=== PATIENT | female | born 1975 | race African-American/Black ===

== ENCOUNTER 2017-12-03 01:58 | Emergency (ER) | payer SELFPAY ==
[~2017-12-03] VITALS: Ht 167.6 cm; Wt 50.0 kg
[2017-12-03] MEDS ORDERED: IBUPROFEN 600MG TABLET PO STA (09:19)
[2017-12-03] MEDS ORDERED: DIPHENHYDRAMINE 25MG CAPSULE PO ONE (09:30)
[2017-12-03 09:54] LABS: HEMATOCRIT. 30.3 % (36.0-48.0); HEMOGLOBIN. 9.4 g/dL (12.0-16.0); MEAN CORPUSCULAR HEMOGLOBIN 21.5 pg (28.0-32.0); MEAN CORPUSCULAR VOLUME 69.3 fL (81.0-99.0); MEAN PLATELET VOLUME 6.5 fl (7.4-10.4); PLATELET 285 x1000/uL (130-400); RED BLOOD CELL COUNT 4.37 mill/uL (4.2-5.4); RED CELL DISTRIBUTION WIDTH 21.9 % (11.6-14.6)
[2017-12-03 10:00] LABS: CHLORIDE 98 mEq/L (98-107)
[2017-12-03 10:10] LABS: ETHANOL BLOOD < 10 mg/dL
[2017-12-03 10:18] LABS: PLATELET ESTIMATE NORMAL
[2017-12-03 10:43] LABS: HCG SCREEN NEGATIVE
[2017-12-03] MEDS ORDERED: POTASSIUM CHLORIDE 10MEQ TABLET SR PO SCH (11:30)
[2017-12-03 11:38] LABS: CLARITY URINE CLOUDY (CLEAR); COLOR URINE DARK YELLOW (YELLOW); KETONES URINE TRACE (NEGATIVE); LEUKOCYTE ESTERASE URINE 2+ (NEGATIVE); NITRITE URINE NEGATIVE (NEGATIVE); OCCULT BLOOD URINE 2+ (NEGATIVE); PROTEIN URINE 1+ (NEGATIVE); SPECIFIC GRAVITY URINE 1.033 (1.005-1.030)
[2017-12-03 12:58] LABS: *AMPHETAMINES SCREEN URINE NEGATIVE (NEGATIVE); *BARBITURATES SCREEN URINE NEGATIVE (NEGATIVE); *BENZODIAZEPINES SCREEN URINE NEGATIVE (NEGATIVE); *COCAINE SCREEN URINE NEGATIVE (NEGATIVE); CANNABINOID URINE SCREEN NEGATIVE (NEGATIVE); METHADONE URINE SCREEN NEGATIVE (NEGATIVE); OPIATES URINE SCREEN NEGATIVE (NEGATIVE); PHENCYCLIDINE URINE SCREEN NEGATIVE (NEGATIVE)
[2017-12-03] MEDS ORDERED: HYDROCODONE/ACETAMINOPHEN 5/325MG TABLET PO PRN (13:15)
[2017-12-03] MEDS ORDERED: CEFTRIAXONE 1 G PREMIX 50 ML IV ONE (13:30)
[2017-12-03 16:10] VITALS: BP 127/72
== END 2017-12-03 16:14 | disposition home or self-care (01) ==
LOC: ER 02:08
DX: N39.0 Urinary tract infection, site not specified (principal); R51 Headache; F17.200 Nicotine dependence, unspecified, uncomplicated; R11.2 Nausea with vomiting, unspecified; Z59.0 Homelessness
CPT/HCPCS: 36415; 70450; 80053; 80305; 81001; 84703; 85025; 87086; 96365; 99285; G0482; J0696; Z7610; Q0163